=== PATIENT | female | born 1935 | race Caucasian/White ===

== ENCOUNTER → 2020-09-24 | Outpatient (CLI) | payer OTHER, MEDICARE | LOC: SJCVCIMAG 10:09 | PROVIDERS: ATTEND Nuclear Medicine Nuclear Cardiology | DX: I73.9 Peripheral vascular disease, unspecified (principal); M79.661 Pain in right lower leg; M79.662 Pain in left lower leg; Z90.89 Acquired absence of other organs ==

== ENCOUNTER → 2020-10-03 | Outpatient (CLI) | payer OTHER, MEDICARE ==
[~2020-10-03] VITALS: Ht 165.1 cm; Wt 56.0 kg
[~2020-10-03] MED LIST: ASA81BEC PO; CENTRUM SILVER1 EAC6 PO; CITRACAL + D E1 EACH PO; DILTIAZEM ER180 M2 PO; HYDROCHLOROTHIA25 M1 PO; IBU800 MG PO; LEVO-T100 MCG PO; NEURONTIN100 MG PO; POTASSIUM GLUCO99 M2 PO; PREDNISONE 1 MG1 M1 PO; PRESERVISION A1 EACH PO; PROLIA60 MG/1 ML SUBQ; RAYOS5 MG PO
[2020-10-03 13:07] VITALS: BP 178/75
[2020-10-03 13:12] LABS: HEMATOCRIT 41.1 % (37.0-47.0); HEMOGLOBIN 13.9 gm/dL (12.0-15.0); MCH 31.1 pg (26.0-34.0); MCHC 33.9 g/dL (28.0-37.0); MCV 91.8 fL (80.0-100.0); RBC 4.48 mil/uL (4.20-5.00); RDW 14.3 % (10.5-14.5); WBC 11.6 thou/uL (4.0-11.0)
[2020-10-03 13:31] LABS: CALCIUM 9.9 mg/dL (8.5-10.1)
[2020-10-03 13:32] LABS: POTASSIUM 2.7 mmol/L (3.5-5.1)
== END | disposition home or self-care (01) ==
LOC: CATH 12:16
PROVIDERS: ATTEND Nuclear Medicine Nuclear Cardiology
DX: I87.2 Venous insufficiency (chronic) (peripheral) (principal); I87.323 Chronic venous hypertension (idiopathic) with inflammation of bilateral lower extremity; R22.43 Localized swelling, mass and lump, lower limb, bilateral; M79.605 Pain in left leg; M79.604 Pain in right leg; I10 Essential (primary) hypertension; E78.5 Hyperlipidemia, unspecified; E03.9 Hypothyroidism, unspecified; I73.89 Other specified peripheral vascular diseases; I48.91 Unspecified atrial fibrillation; Z98.890 Other specified postprocedural states; Z90.49 Acquired absence of other specified parts of digestive tract; Z79.899 Other long term (current) drug therapy; Z79.01 Long term (current) use of anticoagulants; Z96.641 Presence of right artificial hip joint